=== PATIENT | male | born 1980 | race Caucasian/White ===

== ENCOUNTER 2016-11-03 13:06 | Emergency (ER) | payer SELFPAY ==
[~2016-11-03] VITALS: Ht 180.3 cm; Wt 90.7 kg
[2016-11-03 13:24] VITALS: BP 115/53
== END 2016-11-03 15:00 | disposition left against medical advice (07) ==
LOC: ER 13:09
DX: M79.601 Pain in right arm (principal); Z53.21 Procedure and treatment not carried out due to patient leaving prior to being seen by health care provider

== ENCOUNTER 2017-06-21 13:39 | Emergency (ER) | payer SELFPAY ==
[~2017-06-21] VITALS: Ht 180.3 cm; Wt 95.3 kg
[2017-06-21 13:45] VITALS: BP 130/82
[2017-06-21] MEDS ORDERED: KETOROLAC TROMETH 60MG/2ML VIAL IM ONE (16:00)
== END 2017-06-21 16:30 | disposition home or self-care (01) ==
LOC: ER 13:39
DX: S83.8X2A Sprain of other specified parts of left knee, initial encounter (principal); S46.911A Strain of unspecified muscle, fascia and tendon at shoulder and upper arm level, right arm, initial encounter; S01.03XA Puncture wound without foreign body of scalp, initial encounter; V23.4XXA Motorcycle driver injured in collision with car, pick-up truck or van in traffic accident, initial encounter; Y93.I9 Activity, other involving external motion; Y92.89 Other specified places as the place of occurrence of the external cause; Y99.8 Other external cause status
CPT/HCPCS: 70450; 73030; 73562; 96372; 99284; J1885

== ENCOUNTER 2021-04-15 12:44 | Emergency (ER) | payer OTHER ==
[~2021-04-15] VITALS: Ht 180.3 cm; Wt 95.3 kg
[2021-04-15 13:36] VITALS: BP 130/59
[2021-04-15 14:03] LABS: Basophils # (auto) 0.1 10 ^3/uL (0-0.2); Mean Corpuscular Hemoglobin 27.2 pg (28.0-32.0); Neutrophils # (auto) 7.9 10 ^3/uL (1.6-8.6)
[2021-04-15 14:05] LABS: Basophils % (auto) 0.8 % (0.0-2.0); Eosinophils # (auto) 0.8 10 ^3/uL (0-0.8); Eosinophils % (auto) 5.4 % (0.0-7.0); Hematocrit 49.1 % (41.0-53.0); Hemoglobin 16.4 g/dL (13.5-17.5); Lymphocytes # (auto) 4.3 10 ^3/uL (0.4-5.4); Lymphocytes % (auto) 30.8 % (10.0-50.0); Mean Corpuscular Hgb Conc. 33.4 g/dL (32.0-36.0); Mean Corpuscular Volume 81.6 fL (80.0-100.0); Monocytes # (auto) 0.9 10 ^3/uL (0-1.3); Monocytes % (auto) 6.7 % (0.0-12.0); Neutrophils % (auto) 56.3 % (37.0-80.0); Nucleated Red Blood Cells % 0.1 %; Red Blood Cells 6.02 10^6/uL (4.5-5.90); Red Cell Distribution Width 14.6 % (11.8-14.3)
[2021-04-15 14:12] LABS: Alcohol, Urine < 3.0 mg/dL (0-10); Amphetamine Screen, Urine POSITIVE (NEGATIVE); Barbiturate Scree,Urine NEGATIVE (NEGATIVE); Benzodiazephine Screen, Urine NEGATIVE (NEGATIVE); Cannabinoid Screen, Urine POSITIVE (NEGATIVE); Cocaine Screen, Urine NEGATIVE (NEGATIVE); Opiate Scree,Urine NEGATIVE (NEGATIVE); Phencyclidine Screen, Urine POSITIVE (NEGATIVE)
[2021-04-15 14:15] LABS: Albumin 3.6 g/dL (3.4-5.0); BUN/Creatinine Ratio 21.1; Calcium 9.3 mg/dL (8.5-10.1); Potassium 3.9 mmol/L (3.5-5.1)
[2021-04-15 14:18] LABS: Bilirubin, Total 0.5 mg/dL (0.2-1.0)
[2021-04-15] MEDS ORDERED: ONDA-144 PO (15:23)
[2021-04-15] MEDS ORDERED: PANT40TA2 PO (15:23)
== END 2021-04-15 15:40 | disposition home or self-care (01) ==
LOC: ER 12:44
DX: K80.20 Calculus of gallbladder without cholecystitis without obstruction (principal); R11.2 Nausea with vomiting, unspecified; F19.90 Other psychoactive substance use, unspecified, uncomplicated; F17.210 Nicotine dependence, cigarettes, uncomplicated
CPT/HCPCS: 36415; 76705; 80053; 80307; 83690; 85025

== ENCOUNTER 2022-11-18 12:08 | Emergency (ER) | payer OTHER ==
[~2022-11-18] VITALS: Ht 182.9 cm; Wt 109.0 kg
[~2022-11-18 12:08] MED LIST: ONDA-144 PO; PANT40TA2 PO
[2022-11-18] MEDS ORDERED: NALOXONE HCL 1MG/ML 2ML SYRINGE IV PRN (13:00)
[2022-11-18 13:29] VITALS: BP 122/73; PULSE 79; RESP 16; TEMP 98; O2SAT 94
== END 2022-11-18 13:38 | disposition left against medical advice (07) ==
LOC: EDBD 12:08 → ER 12:08
DX: T40.411A Poisoning by fentanyl or fentanyl analogs, accidental (unintentional), initial encounter (principal); Z53.21 Procedure and treatment not carried out due to patient leaving prior to being seen by health care provider; Y92.89 Other specified places as the place of occurrence of the external cause
CPT/HCPCS: 74176

== ENCOUNTER 2023-03-12 23:27 | Emergency (ER) | payer OTHER ==
[~2023-03-12] VITALS: Ht 180.3 cm; Wt 104.5 kg
[2023-03-13 01:24] VITALS: BP 148/82; PULSE 84; RESP 18; TEMP 97.8; O2SAT 96
== END 2023-03-13 01:32 | disposition home or self-care (01) ==
LOC: ER 23:27
DX: K40.90 Unilateral inguinal hernia, without obstruction or gangrene, not specified as recurrent (principal); F15.10 Other stimulant abuse, uncomplicated; F11.20 Opioid dependence, uncomplicated; F17.210 Nicotine dependence, cigarettes, uncomplicated